=== PATIENT | male | born 1965 | race Caucasian/White ===

== ENCOUNTER 2016-11-05 08:01 | Inpatient (IN) | payer OTHER ==
--- NOTE | 2016-11-05 08:24 | ED Physician Documentation ---
PD HPI ABD PAIN - Stated complaint Stated Complaint: LOWER ABD PX - Chief complaint Chief Complaint: Abd Pain - History obtained from History obtained from: Patient - History of Present Illness Timing - onset: Enter time (1800), Last night Timing - duration: Hours Timing - details: Gradual onset, Still present Quality: Aching, Sharp, Pain Location: RLQ Radiation: Lower back Improved by: Laying still Worsened by: Moving, Breathing, Position, Palpation Associated symptoms: Nausea. No: Vomiting, Diarrhea, Chest pain, Testicular pain Similar symptoms before: Has not had sx before Recently seen: Not recently seen - Additional information Additional information: 51-year-old male developed pain in his lower abdomen around the umbilical area last night at about 6 PM. He was unable to sleep last night secondary to the discomfort he was able to eat an egg this morning and when he drove to the hospital here this morning he had pain while going over bumps. He found that laying in the position was more comfortable and standing or walking less comfortable. He has not had a fever he has had some nausea but no vomiting. Review of Systems Constitutional: denies: Fever Eyes: denies: Decreased vision Ears: denies: Ear pain Nose: denies: Congestion Throat: denies: Sore throat Cardiac: denies: Chest pain / pressure, Palpitations Respiratory: denies: Dyspnea, Cough GI: reports: Abdominal Pain, Nausea. denies: Vomiting, Diarrhea : denies: Dysuria, Frequency Skin: denies: Rash Musculoskeletal: reports: Back pain (For the past 3 days the patient has had pain in his back that seemed muscular.). denies: Neck pain PD PAST MEDICAL HISTORY - Past Medical History Cardiovascular: Hypertension, High cholesterol GI: GERD - Past Surgical History Past Surgical History: No Ortho: Shoulder arthroplasty - Present Medications Home Medications: Ambulatory Orders Medication Instructions Recorded Confirmed Losartan [Cozaar] 25 mg PO DAILY 01/03/15 01/03/15 Potassium Bicarbonate/Cit AC 50 meq PO DAILY 01/03/15 01/03/15 [Potassium 25 Meq Tablet Eff] Atenolol 25 mg PO DAILY 11/05/16 11/05/16 - Allergies Allergies/Adverse Reactions: Allergies Allergy/AdvReac Type Severity Reaction Status Date / Time benazepril HCl * Allergy Respiratory Verified 01/03/15 14:33 [From Lotensin] - Social History Does the pt smoke?: No Smoking Status: Never smoker Does the pt drink ETOH?: Yes Does the pt have substance abuse?: No - Immunizations Immunizations are current?: Yes - POLST Patient has POLST: No PD ED PE NORMAL - Vitals Vital signs reviewed: Yes (Hypertensive) - General General: Alert and oriented X 3, No acute distress, Well developed/nourished - HEENT HEENT: Atraumatic, PERRL - Neck Neck: Supple, no meningeal sign - Cardiac Cardiac: RRR, No murmur - Respiratory Respiratory: No respiratory distress, Clear bilaterally - Abdomen Abdomen: Soft, Other (There is specific right lower quadrant tenderness over McBurney's point and this is reproducible. He does not have any guarding or referred tenderness.) - Back Back: No CVA TTP, No spinal TTP - Derm Derm: Normal color, No rash - Extremities Extremities: No deformity, No edema - Neuro Neuro: Alert and oriented X 3, No motor deficit, No sensory deficit, Normal speech Results - Vitals Vitals: Vital Signs - 24 hr 11/05/16 11/05/16 11/05/16 08:03 10:55 12:36 Temperature 35.6 C L 37.1 C Heart Rate 92 72 74 Respiratory 16 18 18 Rate Blood Pressure 145/91 H 116/68 129/70 O2 Saturation 98 96 98 11/05/16 14:12 Temperature 37.1 C Heart Rate 79 Respiratory 18 Rate Blood Pressure 135/87 H O2 Saturation 96 Oxygen O2 Source Room air - Labs Labs: Laboratory Tests 11/05/16 11/05/16 11/05/16 08:20 08:20 08:50 WBC 15.4 H RBC 4.91 Hgb 15.3 Hct 44.0 MCV 89.7 MCH 31.2 H MCHC 34.8 RDW 12.8 Plt Count 168 MPV 8.3 Neut # 11.7 H Lymph # 2.2 [place] # 0.9 Eos # 0.4 Baso # 0.1 Absolute Nucleated RBC 0.00 Nucleated RBCs 0.0 PT INR APTT Sodium 134 L Potassium 3.7 Chloride 100 L Carbon Dioxide 26 Anion Gap 8.0 BUN 15 Creatinine 0.6 Estimated GFR (MDRD) 142 Glucose 125 H Calcium 9.0 Total Bilirubin 1.0 AST 22 ALT 30 Alkaline Phosphatase 58 Total Protein 7.7 Albumin 4.1 Globulin 3.6 Albumin/Globulin Ratio 1.1 Lipase 16 L Urine Color DARK YELLOW Urine Clarity CLEAR Urine pH 6.5 Ur Specific [place] 1.020 Urine Protein NEGATIVE Urine Glucose (UA) NEGATIVE Urine Ketones 15 H Urine Occult Blood NEGATIVE Urine Nitrite NEGATIVE Urine Bilirubin NEGATIVE Urine Urobilinogen 1 (NORMAL) Ur Leukocyte Esterase NEGATIVE Ur Microscopic Review NOT INDICATED Urine Culture Comments NOT INDICATED Blood Type Antibody Screen 11/05/16 11/05/16 13:40 13:40 WBC RBC Hgb Hct MCV MCH MCHC RDW Plt Count MPV Neut # Lymph # [place] # Eos # Baso # Absolute Nucleated RBC Nucleated RBCs PT 13.0 H INR 1.2 APTT 26.9 Sodium Potassium Chloride Carbon Dioxide Anion Gap BUN Creatinine Estimated GFR (MDRD) Glucose Calcium Total Bilirubin AST ALT Alkaline Phosphatase Total Protein Albumin Globulin Albumin/Globulin Ratio Lipase Urine Color Urine Clarity Urine pH Ur Specific [place] Urine Protein Urine Glucose (UA) Urine Ketones Urine Occult Blood Urine Nitrite Urine Bilirubin Urine Urobilinogen Ur Leukocyte Esterase Ur Microscopic Review Urine Culture Comments Blood Type O POSITIVE Antibody Screen NEGATIVE - Rads (name of study) CT abdomen and pelvis Radiology: Prelim report reviewed (Impression: 1. Patchy infiltrate seen in both lung bases, atelectasis versus early infiltrate.2. Acute appendicitis. No abscess or drainable fluid collections.), EMP read indepedently, See rad report 2 veiw chest Radiology: Prelim report reviewed (IMPRESSION: Possible lingular infiltrate or atelectasis. ), EMP read indepedently, See rad report PD MEDICAL DECISION MAKING - ED course Complexity details: reviewed old records, reviewed results, re-evaluated patient , considered differential, d/w patient ED course: 51-year-old male with 12 hours of abdominal pain has acute appendicitis. Dr. Calvert is consulted in the case and will take the patient to the OR. Departure - Departure Disposition: ED Transfer to [facility] Clinical Impression: Appendicitis Qualifiers: Appendicitis type: acute appendicitis Acute appendicitis type: with localized peritonitis Qualified Code(s): K35.3 - Acute appendicitis with localized peritonitis Discharge Date/Time: 11/05/16 14:47
[2016-11-05] MEDS ORDERED: SODIUM CHLORIDE 0.9% 1,000 ML IV ONE ×2 (08:26→08:31)
[2016-11-05] MEDS ORDERED: KETOROLAC 60 MG/2 ML VIAL IVP STA (08:26)
[2016-11-05] MEDS ORDERED: KETOROLAC 30 MG/ML VIAL ONE (08:31)
[2016-11-05 08:39] LABS: BASOPHILS # (AUTO) 0.1 10^3/uL (0.0-0.1); BASOPHILS % (AUTO) 0.7 %; EOSINOPHILS # (AUTO) 0.4 10^3/uL (0.0-0.7); EOSINOPHILS % (AUTO) 2.5 %; HGB - HEMOGLOBIN 15.3 g/dL (14.0-18.0); LYMPHOCYTES # (AUTO) 2.2 10^3/uL (1.5-3.5); LYMPHOCYTES % (AUTO) 14.2 %; MEAN CORPUSCULAR HEMOGLOBIN 31.2 pg (27.0-31.0); MEAN CORPUSCULAR HGB CONC 34.8 g/dL (32.0-36.0); MEAN CORPUSCULAR VOLUME 89.7 fL (80.0-94.0); MEAN PLATELET VOLUME 8.3 fL (7.4-11.4); MONOCYTES # (AUTO) 0.9 10^3/uL (0.0-1.0); MONOCYTES % (AUTO) 6.2 %; NEUTROPHILS # (AUTO) 11.7 10^3/uL (1.5-6.6); NEUTROPHILS % (AUTO) 76.4 %; RED BLOOD COUNT 4.91 10^6/uL (4.70-6.10); RED CELL DISTRIBUTION WIDTH 12.8 % (12.0-15.0); UNCORRECTED WHITE BLOOD COUNT 15.4 x10^3/uL; WHITE BLOOD COUNT 15.4 x10^3/uL (4.8-10.8)
[2016-11-05 08:54] LABS: ALBUMIN/GLOBULIN RATIO 1.1 (1.0-2.2); CREATININE 0.6 mg/dL (0.6-1.2); POTASSIUM 3.7 mmol/L (3.5-5.0); TOTAL PROTEIN 7.7 g/dL (6.7-8.2)
[2016-11-05 09:13] LABS: PH,URINE 6.5 PH (5.0-7.5)
[2016-11-05 09:23] LABS: BILIRUBIN,URINE NEGATIVE (NEGATIVE); UA CHARGE (STRIP ONLY) YES; UR CULTURE IF IND NOT INDICATED
--- NOTE | 2016-11-05 09:46 | CT Preliminary Report ---
Exam: CT Abdomen/Pelvis W/O IMPRESSION: 1. Patchy infiltrate seen in both lung bases, atelectasis versus early infiltrate. 2. Acute appendicitis. No abscessogram or fluid collections. [facility] SITE ID: [id number]
--- NOTE | 2016-11-05 09:52 | CT Report ---
EXAM: CT ABDOMEN AND PELVIS EXAM DATE: 11/05/2016 08:52 AM. CLINICAL HISTORY: Right lower quadrant pain. COMPARISONS: None. TECHNIQUE: Routine helical CT imaging was performed through the abdomen and pelvis. IV contrast: None . Enteric contrast: None. Reconstructions: Coronal and sagittal. In accordance with CT protocol optimization, one or more of the following dose reduction techniques w ere utilized for this exam: automated exposure control, adjustment of mA and/or KV based on patient s ize, or use of iterative reconstructive technique. FINDINGS: Lung Bases: Some minimal patchy airspace density is seen in the lung bases. Please see series 4 image 10. Liver: Normal. No masses. Gallbladder/Bile Ducts: Unremarkable. Spleen: Normal. Pancreas: Normal. Adrenal Glands: Normal. Kidneys: Normal. No masses or hydronephrosis. No stones. Peritoneal Cavity/Bowel: Normal. No free fluid, free air or adenopathy. No masses or acute inflammato ry process. Appendix is well-seen, diffusely abnormal, appendiceal diameter is 12 mm, and there is pe riappendiceal inflammation present. No drainable fluid collections. Please see series 4 image 72, series 6 image 38. Pelvic Organs: Normal. The bladder and visualized pelvic organs are within normal limits. Vasculature: Some vascular clips are seen in both common femoral regions. Bones: No significant abnormality. Other: None. IMPRESSION: 1. Patchy infiltrate seen in both lung bases, atelectasis versus early infiltrate. 2. Acute appendicitis. No abscess or drainable fluid collections. [facility] Referring Provider Line: [phone] SITE ID: [id number]
[2016-11-05] MEDS ORDERED: cefOXitin 1 GM in SODIUM CHLORIDE 0.9% MINIBAG 100 ML IV STA (10:35)
[2016-11-05 13:54] LABS: INR 1.2 (0.8-1.2)
--- NOTE | 2016-11-05 14:01 | HISTORY & PHYSICAL EXAMINATION ---
Chief Complaint - Chief Complaint Chief Complaint: Abdominal pain History of Present Illness - Admitted From Admitted From:: ED - History Obtained From Records Reviewed: yes History obtained from: patient & Spouse Exam Limitations: none - History of Present Illness HPI Comment/Other: 51 yo male c/o of 3 day history of intermittent 8/10 periumbilical pain that migrated to right lower quadrant earlier this am and pain became unbearable so he came to ED. Associated with Nausea. Denies F/C/NS, No vomiting or Diarrhea. First time episode. Review of Systems - Constitutional Constitutional: reports: Fatigue - Eyes Eyes: denies: Pain - Ears, Nose & Throat Ears, Nose & Throat: denies: Ear pain - Cardiovascular Cariovascular: denies: Palpitations, Chest pain, Syncope - Respiratory Respiratory: reports: Apnea (Sleep Apnea on CPAP). denies: Cough, Sputum production, Wheezing, SOB at rest, SOB with exertion - Gastrointestinal Gastrointestinal: reports: Abdominal pain. denies: Diarrhea - Genitourinary Genitourinary: denies: Dysuria - Musculoskeletal Musculoskeletal: denies: Muscle pain - Integumentary Integumentary: denies: Rash - Neurological Neurological: reports: General weakness - Psychiatric Psychiatric: denies: Depression, Anxiety, Suicidal - Hematologic/Lymphatic Hematologic/Lymphatic: denies: Anemia - All Other Systems All Other Systems: reports: Reviewed and negative History - Past Medical History Cardiovascular: reports: Hypertension, High cholesterol Respiratory: reports: Sleep apnea Neuro: reports: None Endocrine/Autoimmune: reports: None GI: reports: GERD : reports: None HEENT: reports: None Psych: reports: None Musculoskeletal: reports: None Derm: reports: None MRSA Hx?: No - Past Surgical History Ortho: reports: Shoulder arthroplasty Cardiovascular: reports: Vascular surgery (Varicose vein removal) HEENT: reports: Tonsil/Adenoidectomy - Family & Social History Family History: Father: Cancer (colon) - POLST Patient has POLST: No Meds/Allgy - Home Medications Home Medications: Ambulatory Orders Medication Instructions Recorded Confirmed Losartan [Cozaar] 25 mg PO DAILY 01/03/15 01/03/15 Potassium Bicarbonate/Cit AC 50 meq PO DAILY 01/03/15 01/03/15 [Potassium 25 Meq Tablet Eff] Atenolol 25 mg PO DAILY 11/05/16 11/05/16 - Allergies Allergies/Adverse Reactions: Allergies Allergy/AdvReac Type Severity Reaction Status Date / Time benazepril HCl * Allergy Respiratory Verified 01/03/15 14:33 [From Lotensin] Exam - Vital Signs Reviewed Vital Signs: Yes Vital Signs: Vital Signs x48h Temp Pulse Resp BP Pulse Ox 11/05/16 12:36 74 18 129/70 98 11/05/16 10:55 37.1 C 72 18 116/68 96 11/05/16 08:03 35.6 C L 92 16 145/91 H 98 - Physical Exam General Appearance: positive: No acute distress Eyes Bilateral: positive: Normal inspection ENT: positive: No signs of dehydration Neck: positive: No JVD Respiratory: positive: Breath sounds nml. negative: Wheezes, Rales, Rhonchi Cardiovascular: positive: Regular rate & rhythm Peripheral Pulses: positive: 2+ Abdomen: positive: Tenderness (+Bs, Soft, TTP RLQ, + rosving, +rebound, Negative obturator/Psoas sign) Back: negative: CVA tenderness (R), CVA tenderness (L) Skin: positive: Warm, Dry Extremities: positive: Pedal edema. negative: Ludwig's sign/cords Conclusion/Plan - Problem List (1) Appendicitis Conclusion/Plan: 51 yo male with acute abdomen found to have appendicitis Admit to surgery NPO, LR@ 150 OR today for laparoscopic appendectomy possible open IV zosyn Qualifiers: Appendicitis type: acute appendicitis Acute appendicitis type: with localized peritonitis Qualified Code(s): K35.3 - Acute appendicitis with localized peritonitis - Lab Results Lab results reviewed: Yes Fish Bones: 11/05/16 08:20 11/05/16 08:20 - Diagnostic Imaging Results Diagnostic Imaging Results: positive: Read contemporaneously (CT abd/p IMPRESSION: 1. Patchy infiltrate seen in both lung bases, atelectasis versus early infiltrate. 2. Acute appendicitis. No abscess or drainable fluid collections.) Issues/Core Measures - Anticipated LOS Anticipated Stay Length: Less than 2 midnights - DVT/VTE - Prophylaxis VTE/DVT Device ordered at admit?: Yes VTE/DVT Prophylaxis med ordered at admit?: Yes
[2016-11-05 14:02] LABS: PARTIAL THROMBOPLASTIN TIME 26.9 secs (24.9-33.3)
[2016-11-05] MEDS ORDERED: SODIUM CHLORIDE FLUSH 0.9% 10 ML SYRINGE IVP PRN (14:13)
[2016-11-05] MEDS ORDERED: PHENOL THROAT SPRAY 177 ML MM PRN (14:13)
[2016-11-05] MEDS ORDERED: ONDANSETRON 4 MG/2 ML VIAL IVP PRN (14:13)
--- NOTE | 2016-11-05 14:14 | XRAY Preliminary Report ---
Exam: XR Chest 2 View PA/LAT IMPRESSION: Possible lingular infiltrate or atelectasis. [facility] SITE ID: [id number]
--- NOTE | 2016-11-05 14:17 | XRAY Report ---
EXAM: CHEST RADIOGRAPHY EXAM DATE: 11/05/2016 02:01 PM. CLINICAL HISTORY: Cough. COMPARISON: None. TECHNIQUE: 2 views. FINDINGS: Lungs/Pleura: Mildly hyperexpanded. An intensely in the anterior chest on lateral view, difficult to localize in frontal projection, but probably in the lingula. Otherwise clear. No consolidation, effus ion, or pneumothorax. Mediastinum: Heart and mediastinal contours are unremarkable. Other: None. IMPRESSION: Possible lingular infiltrate or atelectasis. [facility] Referring Provider Line: [phone] SITE ID: [id number]
[2016-11-05] MEDS ORDERED: LACTATED RINGERS 1,000 ML IV ONE ×4 (14:53→17:55)
[2016-11-05] MEDS ORDERED: LIDOCAINE-MPF 2% 5 ML VIAL IM ONE (16:00)
[2016-11-05] MEDS ORDERED: ceFAZolin 1 GM VIAL IV ONE (16:00)
[2016-11-05] MEDS ORDERED: fentaNYL 100 MCG/2 ML VIAL IVP ONE (16:00)
[2016-11-05] MEDS ORDERED: MIDAZOLAM 2 MG/2 ML VIAL IVP ONE (16:00)
[2016-11-05] MEDS ORDERED: PIPERACILLIN/TAZOBACTAM 3.375 GM in SODIUM CHLORIDE 0.9% MINIBAG 100 ML IV ONE (16:00)
[2016-11-05] MEDS ORDERED: SUCCINYLCHOLINE 200 MG/10 ML VIAL IVP ONE (16:00)
[2016-11-05] MEDS ORDERED: PROPOFOL 200 MG/20 ML VIAL IVP ONE (16:00)
[2016-11-05] MEDS ORDERED: GLYCOPYRROLATE 1 MG/5 ML VIAL IVP ONE (16:00)
[2016-11-05] MEDS ORDERED: ROCURONIUM 50 MG/5 ML VIAL IVP ONE (16:00)
[2016-11-05] MEDS ORDERED: ACETAMINOPHEN 1,000 MG/100 ML VIAL IV ONE (16:00)
[2016-11-05] MEDS ORDERED: ONDANSETRON 4 MG/2 ML VIAL IVP ONE (16:00)
[2016-11-05] MEDS ORDERED: ePHEDrine 50 MG/ML AMP IVP ONE (16:00)
[2016-11-05] MEDS ORDERED: DEXAMETHASONE 4 MG/ML VIAL IVP ONE (16:00)
[2016-11-05] MEDS ORDERED: PHENYLEPHRINE 50 MG/5 ML VIAL IV ONE (16:00)
[2016-11-05] MEDS ORDERED: LIDOCAINE 1%-EPI 1:100000 20 ML MDV SUBQ ONE ×2 (17:31→18:04)
--- NOTE | 2016-11-05 18:32 | OPERATIVE REPORT ---
Operative Report - General Admit Date: 11/05/16 Planned Procedure: Laparoscopic appendectomy possible open Pre-Op Diagnosis: Acute appendicitis Post Op Diagnosis: Acute perforated appendicitis with peritonitis - Procedure Note Primary Surgeon: Dr. Calvert Secondary Surgeon: Dr. Carranza Anesthesia Provider: Truman Rao CRNA Pathology: Appendix Estimated Blood Loss (in cc): 30 Drain/Tube Type: positive: Pako Lin round drain (#15) Complications: None - Other Other Information/Narrative: See anesthesia record
[2016-11-05] MEDS: ACETAMINOPHEN 1,000 MG/100 ML 100 ML IV SCH (19:50)
[2016-11-05] MEDS: LACTATED RINGERS 1,000 ML IV SCH ×2 (19:54→22:56)
[2016-11-05] MEDS: MORPHINE PCA 50 MG IV PRN (20:05)
[2016-11-05] MEDS: FAMOTIDINE 20 MG TABLET PO SCH (21:14)
[2016-11-05] MEDS ORDERED: PIPERACILLIN/TAZOBACTAM 3.375 GM in SODIUM CHLORIDE 0.9% MINIBAG 100 ML IV SCH (22:00)
[2016-11-05] MEDS ORDERED: LACTATED RINGERS 500 ML IV SCH (22:05)
[2016-11-05] MEDS: HEPARIN 5,000 UNIT/ML VIAL SUBQ SCH (22:56)
[2016-11-05] MEDS: SODIUM CHLORIDE FLUSH 0.9% 10 ML SYRINGE IVP SCH (23:01)
[2016-11-06] MEDS: PIPERACILLIN/TAZOBACTAM 3.375 GM in SODIUM CHLORIDE 0.9% MINIBAG 100 ML IV SCH ×5 (00:02→23:55)
[2016-11-06] MEDS: ACETAMINOPHEN 1,000 MG/100 ML 100 ML IV SCH ×4 (00:50→19:27)
[2016-11-06] MEDS: LACTATED RINGERS 1,000 ML IV SCH ×3 (03:56→20:42)
[2016-11-06] MEDS: SODIUM CHLORIDE FLUSH 0.9% 10 ML SYRINGE IVP SCH ×3 (05:18→19:34)
[2016-11-06 05:50] LABS: ALBUMIN/GLOBULIN RATIO 1.1 (1.0-2.2); BILIRUBIN,TOTAL 0.9 mg/dL (0.2-1.0); CALCIUM 8.4 mg/dL (8.5-10.3); CREATININE 0.7 mg/dL (0.6-1.2); POTASSIUM 3.9 mmol/L (3.5-5.0); TOTAL PROTEIN 6.5 g/dL (6.7-8.2)
[2016-11-06 05:53] LABS: BASOPHILS % (AUTO) 0.2 %; HGB - HEMOGLOBIN 13.6 g/dL (14.0-18.0); LYMPHOCYTES # (AUTO) 1.5 10^3/uL (1.5-3.5); LYMPHOCYTES % (AUTO) 11.3 %; MEAN CORPUSCULAR HEMOGLOBIN 31.3 pg (27.0-31.0); MEAN CORPUSCULAR VOLUME 92.2 fL (80.0-94.0); MEAN PLATELET VOLUME 8.6 fL (7.4-11.4); MONOCYTES # (AUTO) 0.9 10^3/uL (0.0-1.0); MONOCYTES % (AUTO) 7.1 %; NEUTROPHILS # (AUTO) 10.8 10^3/uL (1.5-6.6); NEUTROPHILS % (AUTO) 81.4 %; RED BLOOD COUNT 4.34 10^6/uL (4.70-6.10); UNCORRECTED WHITE BLOOD COUNT 13.2 x10^3/uL; WHITE BLOOD COUNT 13.2 x10^3/uL (4.8-10.8)
[2016-11-06] MEDS: FAMOTIDINE 20 MG TABLET PO SCH ×2 (08:36→20:42)
[2016-11-06] MEDS: HEPARIN 5,000 UNIT/ML VIAL SUBQ SCH ×3 (08:36→22:30)
--- NOTE | 2016-11-06 10:54 | OPERATIVE REPORT ---
DATE OF SURGERY: 11/05/2016 00:00:00 PREOPERATIVE DIAGNOSIS: Acute appendicitis. POSTOPERATIVE DIAGNOSIS: Acute perforated appendicitis with peritonitis. PROCEDURE: Laparoscopic appendectomy converted to open appendectomy. SURGEON: Kelton Calvert DO SENIOR PRODUCT ANALYST: Trinh Carranza MD ANESTHESIA: General by Joseph Rao CRNA FINDINGS: Acute appendicitis with perforation. SPECIMENS: Appendix, culture swabs. COMPLICATIONS: None. ESTIMATED BLOOD LOSS: 30 mL. URINE OUTPUT: 380 mL. INTRAVENOUS FLUIDS: 3000 mL. INDICATIONS: This 51-year-old male with hypertension, sleep apnea, class III morbid obesity, presented with right lower quadrant pain for 3 days' duration associated with nausea, with a leukocytosis of 15.[address] scan was consistent with acute appendicitis. Surgical and nonsurgical options were discussed with the patient, including, but not limited to laparoscopic procedure and possible open procedures. The risks and benefits including, but not limited to infection, bleeding, possible need for transfusion and the related risks, risk of abscess, risk of fistula, risk of future hernias, anesthesia risks, scar formation, skin irregularities, risk of were discussed with the patient in layman's terms. The patient agreed to the procedure and signed consent. All questions were answered. PROCEDURE IN DETAIL: The patient was taken to the operating room and placed in a supine position. General anesthesia was induced after SCDs were placed. A Navas catheter was placed. Arms were tucked. The patient had been given IV Mefoxin in the ED and Ancef perioperatively. The patient was prepped and draped in the usual sterile fashion. A timeout was completed, verifying the correct patient, procedure site, position prior to start of procedure. Lidocaine 1% with epinephrine was used supraumbilically for Estephanie and other trocar sites. A #15 blade puncture was created through the skin. Using Estephanie technique, a 12 mm Estephanie trocar was placed supraumbically under direct vision, a 5 mm trocar was placed at the left lower quadrant, a 5 mm trocar was placed in the upper right and lower right quadrants, all under direct vision. The abdomen and pelvis were scanned with no sign of injury from trocar entry. There was no gross pelvic disease noted. Patient was then placed in the Trendelenburg with left side down. The appendix base was clearly visualized and was inflamed at the body and tip with adhesion to the right lateral parietal peritoneum and a small amount of purulence. The base of the appendix was grasped with a Mathew , and careful, painstaking lateral dissection between the peritoneal wall and the appendix was performed using blunt dissection as well as with LigaSure. The mesoappendix was dissected and then ligated with the LigaSure. The appendix and surrounding tissue was found to be very friable, and given the patient's morbid obesity and appendiceal friability, the procedure was converted to open. A right transverse incision was made in the right lower quadrant directly over where the cecum was determined to be, approximately 9 cm in length. Cautery was used to the subcutaneous tissue. A Maria retractor was placed, and the anterior fascia was incised. The abdominal muscles were then split bluntly in the direction of the fibers. Peritoneum was incised, bowel was protected, and entry was obtained. The cecum was exteriorized, and a single blue load was fired across the base of the appendix with complete transection. The appendiceal stump was then oversewn with 2-0 Vicryl. The abdomen was irrigated with saline and suctioned. Hemostasis was maintained. The staple line was inspected and intact with no signs of leakage or bleeding. The 12 mm port was closed with 0 Vicryl suture under direct vision. A 15- [place] round BETSY was placed along the right pericolic gutter and pelvis and sutured to the skin. The transverse incision was closed in layers with 0 Vicryl interrupted sutures. The skin was then washed copiously and dried, and sterilely widely spaced demetra with iodoform packing were placed, followed by Aquacel dressing. The appendix and cultures were sent to Pathology. The patient tolerated the procedure well, was extubated, and taken to PACU for recovery. COUNTS: All counts were correct. JOB #: [id number] EXT JOB #:[id number] URI
[2016-11-06] MEDS ORDERED: LACTATED RINGERS 500 ML IV ONE (12:16)
--- NOTE | 2016-11-06 12:26 | PROVIDER PROGRESS NOTE ---
Subjective - General Admit Date: 11/05/16 Procedure Date: 11/05/16 Post Op Days: 1 Procedure Performed: Open appendectomy - Review of Systems Wound/Incisions: positive: Healing well, Dressing dry and intact, No drainage Drain Type: round BETSY Drain Output Description: serosanguenous Approximate mls Output: 70 General: positive: No symptoms HEENT: positive: No symptoms Pulmonary: positive: No symptoms Cardiovascular: positive: No symptoms Gastrointestinal: positive: Abdominal pain (Post operative appropriate) Genitourinary: positive: No symptoms Musculoskeletal: positive: No symptoms Skin: positive: No symptoms Psychiatric: positive: No symptoms All Other Systems: positive: Reviewed and negative - Other Other Information/Narrative: Patient seen at bedside. States has been ambulating which causes pain, using IS. Denies flatus. No issues reported. Objective - Patient Data Reviewed Vital Signs: Yes Vital Signs: Vital Signs x48h Temp Pulse Resp BP Pulse Ox 11/06/16 11:50 36.9 C 82 18 110/74 97 11/06/16 09:00 20 11/06/16 08:55 36.9 C 86 18 102/61 97 11/06/16 07:00 16 11/06/16 05:22 36.8 C 89 18 108/68 93 11/06/16 05:00 16 Intake & Output: Intake and Output Totals x24h 11/04/16 11/05/16 11/06/16 23:59 23:59 23:59 Intake Total 330 2491 Output Total 440 1395 Balance -110 1096 - Lab Results Lab Results: 11/06/16 05:08 11/06/16 05:08 Other Lab Results: Lab Results x24hrs 11/06/16 11/06/16 Range/Units 05:08 05:08 WBC 13.2 H (4.8-10.8) x10^3/uL RBC 4.34 L (4.70-6.10) 10^6/uL Hgb 13.6 L (14.0-18.0) g/dL Hct 40.0 L (42.0-52.0) % MCV 92.2 (80.0-94.0) fL MCH 31.3 H (27.0-31.0) pg MCHC 34.0 (32.0-36.0) g/dL RDW 13.0 (12.0-15.0) % Plt Count 158 (130-450) 10^3/uL MPV 8.6 (7.4-11.4) fL Neut # 10.8 H (1.5-6.6) 10^3/uL Lymph # 1.5 (1.5-3.5) 10^3/uL [place] # 0.9 (0.0-1.0) 10^3/uL Eos # 0.0 (0.0-0.7) 10^3/uL Baso # 0.0 (0.0-0.1) 10^3/uL Absolute Nucleated RBC 0.00 x10^3/uL Nucleated RBCs 0.0 /100WBC Sodium 138 (135-145) mmol/L Potassium 3.9 (3.5-5.0) mmol/L Chloride 103 (101-111) mmol/L Carbon Dioxide 28 (21-32) mmol/L Anion Gap 7.0 (6-13) BUN 10 (6-20) mg/dL Creatinine 0.7 (0.6-1.2) mg/dL Estimated GFR (MDRD) 119 (>89) Glucose 130 H (70-100) mg/dL Calcium 8.4 L (8.5-10.3) mg/dL Total Bilirubin 0.9 (0.2-1.0) mg/dL AST 19 (10-42) IU/L ALT 23 (10-60) IU/L Alkaline Phosphatase 45 (42-121) IU/L Total Protein 6.5 L (6.7-8.2) g/dL Albumin 3.4 (3.2-5.5) g/dL Globulin 3.1 (2.1-4.2) g/dL Albumin/Globulin Ratio 1.1 (1.0-2.2) - Current Medications Current Medications: Current Medications Generic Name Dose Route Start Last Admin Trade Name Freq PRN Reason Stop Dose Admin Famotidine 20 mg 11/05/16 21:00 11/06/16 08:36 Pepcid PO 20 mg BID IVELISSE Administration Heparin Sodium (Porcine) 5,000 unit 11/05/16 23:00 11/06/16 08:36 SUBQ 5,000 unit BID IVELISSE Administration Lactated Ringer's 1,000 mls @ 150 mls/hr 11/05/16 15:00 11/06/16 10:47 Lr IV 150 mls/hr .Q6H40M IVELISSE Administration Acetaminophen 100 mls @ 400 mls/hr 11/05/16 19:00 11/06/16 06:38 Ofirmev IV 400 mls/hr Q6H IVELISSE Administration Piperacillin Sod/Tazobactam 100 mls @ 200 mls/hr 11/06/16 00:30 11/06/16 06:02 Sod 3.375 gm/ Sodium Chloride IV 200 mls/hr Q6H IVELISSE Administration Morphine Sulfate/Sodium Chloride 50 mg 11/05/16 18:27 11/05/16 20:05 Morphine Pole Shaver Helper (Use Pole Shaver Helper Order Set) IV 50 mg APPLICATIONS DEVELOPER PRN Administration PAIN Protocol Sodium Chloride 10 ml 11/05/16 22:00 11/06/16 05:18 Normal Saline Flush 0.9% IVP Not Given Q8HR IVELISSE - Physical Exam Wound/Incisions: positive: Dressing dry and intact General Appearance: positive: Mild distress Eyes Bilateral: positive: EOMI ENT: positive: Pharynx nml, No signs of dehydration (urine output adequate, however slightly dark dayanara) Neck: positive: No JVD Respiratory: positive: Breath sounds nml Cardiovascular: positive: Regular rate & rhythm Abdomen: positive: Tenderness (+BS, soft, TTP at surgical sites appropriate, No rebound or guarding) Back: positive: Nml inspection Skin: positive: Warm, Dry Extremities: negative: Calf tenderness, Ludwig's sign/cords Neurologic/Psychiatric: positive: Oriented x3, CN's nml (2-12) Impression/Plan - Problem List Problem List: 51 yo male with perforated appendicitis with peritonitis POD#1 Continue ABX today Continue smith for hemodynamic monitoring for today Echo for EF Will start clears Awaiting cultures and pathology Will hold B-blockers until SBP normalizes
[2016-11-06] MEDS: MORPHINE PCA 50 MG IV PRN (14:08)
[2016-11-06] MEDS ORDERED: LACTATED RINGERS 500 ML IV SCH (14:30)
[2016-11-06] MEDS ORDERED: MORPHINE 2 MG/ML SYRINGE IVP PRN (20:56)
[2016-11-06] MEDS ORDERED: KETOROLAC 15 MG/ML VIAL IVP PRN (20:58)
[2016-11-06] MEDS: IBUPROFEN 400 MG TABLET PO SCH ×2 (21:11→23:56)
[2016-11-06] MEDS: HYDROcod/ACETAM 5/325 MG TABLET PO PRN (22:31)
[2016-11-07] MEDS ORDERED: LACTATED RINGERS 1,000 ML IV SCH (00:35)
[2016-11-07] MEDS: IBUPROFEN 400 MG TABLET PO SCH (05:48)
[2016-11-07] MEDS: HEPARIN 5,000 UNIT/ML VIAL SUBQ SCH ×2 (05:49→13:25)
[2016-11-07] MEDS: HYDROcod/ACETAM 5/325 MG TABLET PO PRN ×3 (05:51→18:19)
[2016-11-07 05:53] LABS: BASOPHILS # (AUTO) 0.1 10^3/uL (0.0-0.1); BASOPHILS % (AUTO) 0.9 %; EOSINOPHILS # (AUTO) 0.4 10^3/uL (0.0-0.7); EOSINOPHILS % (AUTO) 3.7 %; HCT - HEMATOCRIT 38.3 % (42.0-52.0); HGB - HEMOGLOBIN 13.4 g/dL (14.0-18.0); LYMPHOCYTES # (AUTO) 2.2 10^3/uL (1.5-3.5); LYMPHOCYTES % (AUTO) 21.1 %; MEAN CORPUSCULAR HEMOGLOBIN 31.9 pg (27.0-31.0); MEAN CORPUSCULAR HGB CONC 34.8 g/dL (32.0-36.0); MEAN CORPUSCULAR VOLUME 91.7 fL (80.0-94.0); MEAN PLATELET VOLUME 8.4 fL (7.4-11.4); MONOCYTES % (AUTO) 9.5 %; NEUTROPHILS # (AUTO) 6.8 10^3/uL (1.5-6.6); NEUTROPHILS % (AUTO) 64.8 %; NUCLEATED RED BLOOD CELLS AUTO 0.1 /100WBC; RED BLOOD COUNT 4.18 10^6/uL (4.70-6.10); RED CELL DISTRIBUTION WIDTH 12.9 % (12.0-15.0); UNCORRECTED WHITE BLOOD COUNT 10.5 x10^3/uL; WHITE BLOOD COUNT 10.5 x10^3/uL (4.8-10.8)
[2016-11-07 06:00] LABS: CALCIUM 8.6 mg/dL (8.5-10.3); CREATININE 0.6 mg/dL (0.6-1.2); POTASSIUM 3.6 mmol/L (3.5-5.0)
[2016-11-07] MEDS: SODIUM CHLORIDE FLUSH 0.9% 10 ML SYRINGE IVP SCH ×2 (06:54→13:32)
[2016-11-07] MEDS: PIPERACILLIN/TAZOBACTAM 3.375 GM in SODIUM CHLORIDE 0.9% MINIBAG 100 ML IV SCH ×2 (06:56→11:35)
[2016-11-07] MEDS: FAMOTIDINE 20 MG TABLET PO SCH (08:21)
[2016-11-07] MEDS ORDERED: POLYETHYLENE GLYCOL 3350 17 GM PACKET PO SCH (10:00)
--- NOTE | 2016-11-07 11:25 | PROVIDER PROGRESS NOTE ---
Subjective - General Admit Date: 11/05/16 Procedure Date: 11/05/16 Post Op Days: 2 Procedure Performed: Open appendectomy - Review of Systems Wound/Incisions: positive: Dressing dry and intact, No drainage Drain Type: round BETSY Drain Output Description: serosanguenous Approximate mls Output: 130 General: positive: No symptoms HEENT: positive: No symptoms Pulmonary: positive: No symptoms Cardiovascular: positive: No symptoms Gastrointestinal: positive: Abdominal pain (Post operative appropriate) Genitourinary: positive: No symptoms Musculoskeletal: positive: No symptoms Skin: positive: No symptoms Psychiatric: positive: No symptoms All Other Systems: positive: Reviewed and negative - Other Other Information/Narrative: Patient seen at bedside, Ambulating well. Using IS. Tolerating diet and passing flatus. BETSY drain with 130 mL output serosanguenous. Urinating well. Pain moderately controlled. No issues reported Objective - Patient Data Reviewed Vital Signs: Yes Vital Signs: Vital Signs x48h Temp Pulse Resp BP Pulse Ox 11/07/16 08:26 37.1 C 87 18 126/76 96 11/07/16 05:00 36.9 C 81 18 140/89 H 93 Intake & Output: Intake and Output Totals x24h 11/05/16 11/06/16 11/07/16 23:59 23:59 23:59 Intake Total 330 5639 1936 Output Total 440 2130 905 Balance -110 3509 1031 - Lab Results Lab Results: 11/07/16 05:23 11/07/16 05:23 Other Lab Results: Lab Results x24hrs 11/07/16 11/07/16 Range/Units 05:23 05:23 WBC 10.5 (4.8-10.8) x10^3/uL RBC 4.18 L (4.70-6.10) 10^6/uL Hgb 13.4 L (14.0-18.0) g/dL Hct 38.3 L (42.0-52.0) % MCV 91.7 (80.0-94.0) fL MCH 31.9 H (27.0-31.0) pg MCHC 34.8 (32.0-36.0) g/dL RDW 12.9 (12.0-15.0) % Plt Count 137 (130-450) 10^3/uL MPV 8.4 (7.4-11.4) fL Neut # 6.8 H (1.5-6.6) 10^3/uL Lymph # 2.2 (1.5-3.5) 10^3/uL [place] # 1.0 (0.0-1.0) 10^3/uL Eos # 0.4 (0.0-0.7) 10^3/uL Baso # 0.1 (0.0-0.1) 10^3/uL Absolute Nucleated RBC 0.01 x10^3/uL Nucleated RBCs 0.1 /100WBC Sodium 138 (135-145) mmol/L Potassium 3.6 (3.5-5.0) mmol/L Chloride 102 (101-111) mmol/L Carbon Dioxide 28 (21-32) mmol/L Anion Gap 8.0 (6-13) BUN 9 (6-20) mg/dL Creatinine 0.6 (0.6-1.2) mg/dL Estimated GFR (MDRD) 142 (>89) Glucose 103 H (70-100) mg/dL Calcium 8.6 (8.5-10.3) mg/dL - Current Medications Current Medications: Current Medications Generic Name Dose Route Start Last Admin Trade Name Freq PRN Reason Stop Dose Admin Acetaminophen/Hydrocodone Bitart 2 tab 11/06/16 20:56 11/07/16 05:51 [place] 5/325 PO 2 tab Q4HR PRN Administration Pain 5 to 7 Famotidine 20 mg 11/05/16 21:00 11/07/16 08:21 Pepcid PO 20 mg BID IVELISSE Administration Heparin Sodium (Porcine) 5,000 unit 11/06/16 17:00 11/07/16 05:49 SUBQ 5,000 unit TID IVELISSE Administration Piperacillin Sod/Tazobactam 100 mls @ 200 mls/hr 11/06/16 00:30 11/07/16 06:56 Sod 3.375 gm/ Sodium Chloride IV 200 mls/hr Q6H IVELISSE Administration Lactated Ringer's 1,000 mls @ 30 mls/hr 11/07/16 00:35 11/07/16 01:17 Lr IV Not Given .[id number] IVELISSE TKO Ketorolac Tromethamine 15 mg 11/06/16 20:58 11/07/16 08:22 Toradol Inj IVP 11/11/16 20:57 15 mg Q6HR PRN Administration PAIN Sodium Chloride 10 ml 11/05/16 22:00 11/07/16 06:54 Normal Saline Flush 0.9% IVP Not Given Q8HR IVEILSSE - Physical Exam Wound/Incisions: positive: Healing well, Dressing dry and intact, No drainage General Appearance: positive: No acute distress Eyes Bilateral: positive: EOMI ENT: positive: No signs of dehydration Neck: positive: No JVD Respiratory: positive: Breath sounds nml Cardiovascular: positive: Regular rate & rhythm Abdomen: positive: Tenderness (+BS, hypoactiven, Appropriate post op TTP, no rebound or guarding. BETSY drain in place.) Impression/Plan - Problem List Problem List: 51 yo Male s/ Open appendectomy for acute perforated appendicitis with peritonitis POD#2 Continue IV abx Continue BETSY Ambulate/ IS use Begin D/c planning
[2016-11-07] MEDS ORDERED: MULTIVITAMIN TABLET PO SCH (12:00)
[2016-11-07] MEDS ORDERED: MAGNESIUM OXIDE 400 MG TABLET PO SCH (12:00)
[2016-11-07] MEDS: POTASSIUM CHLORIDE 20 MEQ TABLET PO SCH ×2 (12:01→15:18)
[2016-11-07] MEDS ORDERED: POTASSIUM CHLORIDE 20 MEQ TABLET PO SCH (15:00)
[2016-11-07] MEDS ORDERED: metroNIDAZOLE 500 MG/100 ML 100 ML IV SCH (18:00)
[2016-11-07] MEDS ORDERED: CIPROFLOXACIN 400 MG/200 ML 200 ML IV SCH (18:00)
--- NOTE | 2016-11-07 18:21 | Discharge Plan ---
Discharge Plan Disposition: Home, Self Care Condition: Stable Prescriptions: Metronidazole [Flagyl] 500 mg PO Q8HR #15 tablet Ciprofloxacin HCl [Cipro] 500 mg PO BID #20 tablet Docusate Sodium 250Mg Capsule [Colace 250Mg Capsule] 250 mg PO DAILY PRN #30 capsule PRN Reason: Constipation oxyCODONE/ACET 5/325 [Percocet 5 mg/325 mg] 1 each PO Q4-6H PRN #20 tablet PRN Reason: Pain Metoclopramide [Reglan] 10 mg PO Q6H PRN #12 tablet PRN Reason: Nausea / Vomiting Diet: Low Sodium Activity Restrictions: Activity as Tolerated (No exercising which engage core muscles.) Shower Restrictions: Yes (Keep abdomen drym for 48 hours) Driving Restrictions: Yes (No driving while on narcotics) Additional Instructions or Follow Up instructions: Keep hydrated. Record drain output every 12 hours. Change drain dressing daily and as needed. Surgical dressings can come off in 48 hours. No heavy lifting more than 20 lbs for 2 weeks. No swimming unless cleared by surgical team. Use incentive spirometer. No driving, signing contracts or operating heavy machinery while on narcotics. If constipation greater than 48 hours call our office for further instructions. If pain returns or fevers develop return to call surgical number for further instructions. If pain worsens or fever greater than 101 then call 911 and return to hospital. Any questions 02/12 call our office . Call surgical clinic for appointment next week on Friday or Friday at the latest. Office Number: [phone] No Smoking: If you smoke, Please STOP! Call for help. Follow-up with: Mary Dave MD [Primary Care Provider] - 1 Week XIN CLAIRE MD [Provider Admit Priv/Credential] - 10/13/17 (Friday or Friday)
[2016-11-07] MEDS ORDERED: CIPROFLOXACIN 250 MG TABLET PO ONE (19:00)
[2016-11-07 19:28] VITALS: BP 140/88
[2016-11-07] MEDS ORDERED: ATENOLOL 25 MG TABLET PO SCH (21:00)
--- NOTE | 2016-11-08 06:30 | DISCHARGE SUMMARY ---
DATE OF ADMISSION: 11/05/2016 DATE OF DISCHARGE: 11/07/2016 FINAL DIAGNOSIS: Acute perforated appendicitis with peritonitis. PROCEDURE: Laparoscopic converted to open appendectomy. HISTORY OF PRESENT ILLNESS: This pleasant 51-year-old male with past medical history of hypertension, class 3 morbid obesity presented with approximately 3 days duration of sharp, rating it an 8/10 periumbilical pain that migrated to the right lower quadrant associated with nausea, which became unbearable so he came to the emergency department. ALLERGIES: BENAZEPRIL. LABORATORY DATA: His WBC on admission was 15.4K, sodium was 134, glucose was 125 , and urine ketones were 15. A CT scan of the abdomen and pelvis was positive for acute appendicitis, patchy infiltrate in bilateral lung bases were noted which possibly indicate atelectasis versus early pneumonia. HOSPITAL COURSE: The patient was started on lactated ringers and Zosyn was begun. The operative team was notified and the patient was taken to surgery for laparoscopic converted to open appendectomy. See OR dictation. The patient was recovered by the PACU team. Was continued on Zosyn postoperatively kept on IV acetaminophen, morphine PHARMACY BENEFIT MANAGER and Toradol as needed. Cultures came back growing E- coli sensitive to Cipro and antibiotics were switched to Cipro. He was ambulating well, pain was well-controlled, urinating well, using incentive spirometer and tolerating meals. The BETSY drain was putting out around 150 mL of serosanguineous fluid immediately postoperatively and subsequently decreased throughout postop day 2 and was removed. DISCHARGE MEDICATIONS: 1. Flagyl 500 mg p.o. q. 8, #15. 2. Cipro 500 mg p.o. b.i.d. #20. 3. Colace 250 mg p.o. q. daily p.r.n. constipation. 4. Percocet 5/325 mg 1 tab p.o. q. 4 to 6 hours p.r.n. pain. 5. Reglan 10 mg p.o. q. 6 hours p.r.n. nausea, #12. He was instructed to resume his home medications of: 1. Atenolol. 2. Losartan/HCTZ. 3. Potassium chloride pill as previously prescribed by his PCP. DISCHARGE INSTRUCTIONS: Instructions given to the patient before and after surgery. The patient was instructed no heavy lifting for the next few weeks, no more than 20 pounds, to ambulate 30 minutes 3 times daily starting 11/07/2016, to continue his diet as tolerated and use his incentive spirometer. The patient was also instructed that he may need Colace if constipated and if the constipation lasts longer than 48 hours he should call me for further instructions. He was instructed to continue using his CPAP machine as previously prescribed by his PCP. The patient was instructed not to drive, sign documents, or use heavy equipment while on narcotics. He may switch to Motrin 400 mg every 6 hours instead of Percocet. He was instructed not to swim until cleared by our surgical team. He was instructed to leave the dressing on for 48 hours and may remove the outer dressing and may shower with the dressings on and once off to pat the area, not to rub the surgical sites. He was instructed to take antibiotics as directed. He was instructed that if minor pain or fever developed to call the surgical number for further instructions and if the pain worsens or if he develops a fever of 101 degrees Fahrenheit or greater to call 911 and return to the Emergency Department. He was instructed to call me 02/12 with any questions or concerns. The clinic number was provided. He was again instructed of the possible postoperative complications such as abscess of both skin and intraabdominal, as well as hernia. Followup appointments: The patient was instructed to call the clinic on 2016 for an appointment with Dr. Carranza the following week. He is also instructed to follow up with his primary care physician within the next 2 weeks. CODE STATUS: FULL CODE. JOB #: [id number] EXT JOB #:[id number] MTDD
== END 2016-11-07 19:00 | disposition home or self-care (01) | DRG 339 ==
LOC: ED 08:01 → SDS 13:46 → OBSVTOIN 14:13 → MS 14:13
PROVIDERS: ADMIT Surgery; ATTEND Surgery
PROC: 0DTJ0ZZ Resection of Appendix, Open Approach (ICD-10-PCS; principal; 2016-11-05 15:45)
PROC: 0DJD4ZZ Inspection of Lower Intestinal Tract, Percutaneous Endoscopic Approach (ICD-10-PCS; 2016-11-05 15:45)
DX: K35.2 Acute appendicitis with generalized peritonitis (principal); Z68.41 Body mass index [BMI] 40.0-44.9, adult; I10 Essential (primary) hypertension; E66.01 Morbid (severe) obesity due to excess calories; G47.30 Sleep apnea, unspecified; Z53.31 Laparoscopic surgical procedure converted to open procedure; Z80.0 Family history of malignant neoplasm of digestive organs
CPT/HCPCS: 36415; 71020; 74176; 80048; 80053; 81001; 81003; 83690; 85025; 85610; 85730; 86850; 86900; 86901; 87070; 87075; 87076; 87077; 87086; 87205; 88304; 93005; 93306; 96365; 96375; 99284; 99285

== ENCOUNTER 2016-11-15 08:32 | Emergency (ER) | payer OTHER ==
[2016-11-15 08:41] VITALS: BP 155/101
--- NOTE | 2016-11-15 10:54 | ED Physician Documentation ---
History of Present Illness - Stated complaint Stated Complaint: R LEG SWELLING - Chief complaint Chief Complaint: Ext Problem - History obtained from History obtained from: Patient - Additonal information Additional information: This patient is a 51-year-old male with a history of superficial Phlebitis in the past as well as varicosities. Previously he has had vein stripping. He noticed an area that was swollen on the right anterior lateral leg that was concerning to him. At this point area is slightly tender to touch, raised, and warm. He denies any generalized leg swelling of the affected right side. He was concerned because he had abdominal surgery 10 days ago. He had an open elsa appendectomy at this time. He denies any pulmonary complaints such as chest pain or shortness of breath he has never had a deep venous thrombosis before and has had an ultrasound of his legs bilaterally about a year ago. Review of systems: For pertinent positives and negatives history of present illness otherwise all other systems have been reviewed and are normal PD PAST MEDICAL HISTORY - Past Medical History Cardiovascular: Hypertension, High cholesterol Respiratory: Sleep apnea Neuro: None Endocrine/Autoimmune: None GI: GERD : None HEENT: None Psych: None Musculoskeletal: None Derm: None - Past Surgical History Past Surgical History: Yes General: Appendectomy Ortho: Shoulder arthroplasty Cardiovascular: Vascular surgery HEENT: Tonsil/Adenoidectomy - Present Medications Home Medications: Ambulatory Orders Medication Instructions Recorded Confirmed Atenolol 25 mg PO DAILY 11/05/16 11/15/16 Losartan/Hydrochlorothiazide 1 tab PO DAILY 11/06/16 11/15/16 [Losartan-Hctz 100-25 mg Tab] Potassium Chloride 20 meq PO DAILY 11/06/16 11/15/16 Ciprofloxacin HCl [Cipro] 500 mg PO BID #20 tablet 11/07/16 11/15/16 Docusate Sodium 250Mg Capsule 250 mg PO DAILY PRN #30 capsule 11/07/16 11/15/16 [Colace 250Mg Capsule] oxyCODONE/ACET 5/325 [Percocet 5 1 each PO Q4-6H PRN #20 tablet 11/07/16 mg/325 mg] HYDROcod/ACETAM 5/325 [[place] 5/325] 1 - 2 ea PO Q6H PRN #15 tablet 11/15/16 - Allergies Allergies/Adverse Reactions: Allergies Allergy/AdvReac Type Severity Reaction Status Date / Time benazepril HCl * Allergy Respiratory Verified 11/15/16 08:41 [From Lotensin] - Social History Does the pt smoke?: No Smoking Status: Never smoker Does the pt drink ETOH?: Yes Does the pt have substance abuse?: No - Immunizations Immunizations are current?: Yes - POLST Patient has POLST: No PD ED PE NORMAL - Vitals Vital signs reviewed: Yes - General General: Alert and oriented X 3, No acute distress - HEENT HEENT: PERRL - Neck Neck: Supple, no meningeal sign - Cardiac Cardiac: RRR, No murmur - Respiratory Respiratory: Clear bilaterally - Abdomen Abdomen: Normal bowel sounds, Soft, Non tender, Non distended - Derm Derm: Warm and dry - Extremities Extremities: No deformity - Neuro Neuro: Alert and oriented X 3 - Psych Psych: Normal mood, Normal affect - Free text exam Free text exam: Well-appearing husky male in no apparent distress on examination of his bilateral lower extremities he has multiple superficial and larger varicosities from her bulging especially around the right anterior lateral calf. He has a palpable superficial vein at the location where he is symptomatic. I was concerned given his history of venous disease and recent surgery and wanted to rule out any deep venous thrombosis in the deeper system and ultrasound was done and read by radiology just ultrasound demonstrates superficial phlebitis without any evidence of deep venous thrombosis. Disposition to home Clinical impression: 1. Superficial thrombophlebitis right lower extremity Results - Vitals Vitals: Vital Signs - 24 hr 11/15/16 08:38 Temperature 36.2 C L Heart Rate 88 Respiratory 18 Rate Blood Pressure 155/101 H O2 Saturation 98 Oxygen O2 Source Room air Departure - Departure Disposition: 01 Home, Self Care Clinical Impression: Superficial thrombophlebitis Clinical Impression: (Ruled Out): Deep vein thrombosis Condition: Good Instructions: ED Phlebitis Superficial Follow-Up: VICKI GILL MD [Primary Care Provider] - Prescriptions: HYDROcod/ACETAM 5/325 [[place] 5/325] 1 - 2 ea PO Q6H PRN #15 tablet PRN Reason: Pain
--- NOTE | 2016-11-15 11:02 | Ultrasound Report ---
RIGHT LEG VENOUS DUPLEX: 11/15/2016 CLINICAL INDICATION: Swelling status post surgery. TECHNIQUE: Real-time sonographic vascular imaging was performed by the new client banking services clerk through the right leg utilizing both color flow and Doppler spectral analysis. Multiple apparel trimmings sales representative static images w ere saved for review. FINDINGS: A right lower extremity venous sonogram is performed revealing the common femoral, superfi cial femoral, profunda femoris, and popliteal veins to be adequately visualized without intraluminal defects. There is normal venous compression, augmentation, phasicity, and spontaneity of venous flow. In the calf, the visualized more cephalad portions of posterior tibial and peroneal veins are gross ly compressible, without filling defects. There is superficial thrombophlebitis of the distal greate r saphenous vein in the calf. IMPRESSION: NO EVIDENCE OF DEEP VENOUS THROMBOSIS. JOB #: [id number] EXT JOB #:
== END 2016-11-15 11:04 | disposition home or self-care (01) ==
LOC: ED 08:32
DX: I80.01 Phlebitis and thrombophlebitis of superficial vessels of right lower extremity (principal); I83.91 Asymptomatic varicose veins of right lower extremity; I10 Essential (primary) hypertension; E78.00 Pure hypercholesterolemia, unspecified; G47.30 Sleep apnea, unspecified; K21.9 Gastro-esophageal reflux disease without esophagitis
CPT/HCPCS: 99283

== ENCOUNTER 2017-06-30 09:49 | Emergency (ER) | payer OTHER ==
[2017-06-30 10:10] VITALS: BP 142/92
[2017-06-30] MEDS ORDERED: BUPIVACAINE 0.5% PF 30 ML VIAL SUBQ STA (10:12)
[2017-06-30] MEDS ORDERED: TETANUS/DIPHTHERIA/PERTUSSIS 0.5 ML SYRINGE IM ONE (10:12)
--- NOTE | 2017-06-30 10:15 | ED Physician Documentation ---
History of Present Illness - Stated complaint Stated Complaint: HAND INJURY - Chief complaint Chief Complaint: Laceration - Additonal information Additional information: hx from pt 51 male slipped and struck R palm on metal corner suffering stallate lac to radial aspect of the paklm, no motor sensory deficits last tetanus< 5 yr ago Review of Systems Skin: reports: Laceration (s) PD PAST MEDICAL HISTORY - Past Medical History Cardiovascular: Hypertension, High cholesterol Respiratory: Sleep apnea Neuro: None Endocrine/Autoimmune: None GI: GERD : None HEENT: None Psych: None Musculoskeletal: None Derm: None - Past Surgical History Past Surgical History: Yes General: Appendectomy Ortho: Shoulder arthroplasty Cardiovascular: Vascular surgery HEENT: Tonsil/Adenoidectomy - Present Medications Home Medications: Ambulatory Orders Medication Instructions Recorded Confirmed Atenolol 25 mg PO DAILY 11/05/16 11/15/16 Losartan/Hydrochlorothiazide 1 tab PO DAILY 11/06/16 11/15/16 [Losartan-Hctz 100-25 mg Tab] Potassium Chloride 20 meq PO DAILY 11/06/16 11/15/16 Ciprofloxacin HCl [Cipro] 500 mg PO BID #20 tablet 11/07/16 11/15/16 Docusate Sodium 250Mg Capsule 250 mg PO DAILY PRN #30 capsule 11/07/16 11/15/16 [Colace 250Mg Capsule] oxyCODONE/ACET 5/325 [Percocet 5 1 each PO Q4-6H PRN #20 tablet 11/07/16 mg/325 mg] HYDROcod/ACETAM 5/325 [[place] 5/325] 1 - 2 ea PO Q6H PRN #15 tablet 11/15/16 Cephalexin [Keflex] 500 mg PO Q6H #28 capsule 06/30/17 - Allergies Allergies/Adverse Reactions: Allergies Allergy/AdvReac Type Severity Reaction Status Date / Time benazepril HCl * Allergy Respiratory Verified 06/30/17 10:09 [From Lotensin] - Social History Does the pt smoke?: No Smoking Status: Never smoker Does the pt drink ETOH?: Yes Does the pt have substance abuse?: No - Immunizations Immunizations are current?: Yes - POLST Patient has POLST: No PD ED PE NORMAL - Vitals Vital signs reviewed: Yes - Extremities Extremities: Other (R hand, steallate lac to radial aspecyy palm proximal to 2nd MCP vis to base no FB and ran thumb and fingers through full JM and do not see any tendon defect, extension felsion MCP PIP DIP as well as sensation intact ) Results - Vitals Vitals: Vital Signs - 24 hr 06/30/17 09:54 Temperature 36.9 C Heart Rate 65 Respiratory 18 Rate Blood Pressure 142/92 H O2 Saturation 97 Oxygen O2 Source Room air Procedures - Laceration (location) hand Length in cm: 3 Wound type: Stellate Neurovascular status: Sensory intact, Motor intact Tendon involvement: Tendon intact, Other (ran through ROM under direct light and no tendon defect seen) Anesthesia: Marcaine 0.5% Wound Preparation: Irrigated copiously NS, Other (2 pices of avulsed tissue removed from wound) Skin layer closure: Nylon, Interrupted, Size #-0 - enter number (5), Sutures - enter # (8) Other: Patient tolerated well, No complications, Neurovascular intact, Dressing applied, Tetanus UTD Complexity: Simple Departure - Departure Disposition: 01 Home, Self Care Clinical Impression: Laceration, Puncture wound Condition: Good Instructions: ED Laceration Hand Follow-Up: ALESIA POWERS MD [Primary Care Provider] - Prescriptions: Cephalexin [Keflex] 500 mg PO Q6H #28 capsule Comments: The metal was clean and the wound was carefully washed and all tissue was removed - so hopefully no infection will develop. But the wound was deep with some avulsed tissue fragments. So keep the wound clean and apply antibiotic ointment daily. If you notice any redness or swelling developing, start the keflex that i prescribed. If any worsening of infection occurs come back to the ER Otherwise sutures may be removed at 10 days
== END 2017-06-30 12:21 | disposition home or self-care (01) ==
LOC: ED 09:49
DX: S61.411A Laceration without foreign body of right hand, initial encounter (principal); S61.431A Puncture wound without foreign body of right hand, initial encounter; W01.118A Fall on same level from slipping, tripping and stumbling with subsequent striking against other sharp object, initial encounter; I10 Essential (primary) hypertension
CPT/HCPCS: 12001; 12002; 99283

== ENCOUNTER 2019-11-01 15:17 | Emergency (ER) | payer BC, OTHER ==
--- NOTE | 2019-11-01 15:43 | ED Physician Documentation ---
PD HPI ALTERED MENTAL STATUS - Stated complaint Stated Complaint: MHE - History obtained from History obtained from: Patient, Family - Additional information Additional information: 54-year-old gentleman finished a course of steroids about 4 weeks ago. Ever since then he has not been sleeping. He is been doing done things with money. Mildly confused. Mild hallucinations mostly visual. He was started on low-dose Lamictal, 25 mg a day which really has not been helpful. Now seems more confused during a chat with his psychiatrist today and she referred him here for potential admission. He was seen last night at [facility] and per his report labs and a CT of the head were done without pertinent positive findings. Review of Systems Ten Systems: 10 systems reviewed and negative Constitutional: reports: Reviewed and negative Nose: reports: Reviewed and negative Throat: reports: Reviewed and negative PD PAST MEDICAL HISTORY - Past Medical History Cardiovascular: Hypertension, High cholesterol Respiratory: Sleep apnea Endocrine/Autoimmune: None GI: GERD : None HEENT: None Psych: None Musculoskeletal: None Derm: None - Past Surgical History Past Surgical History: Yes General: Appendectomy Ortho: Shoulder arthroplasty Cardiovascular: Vascular surgery HEENT: Tonsil/Adenoidectomy - Present Medications Home Medications: Ambulatory Orders Medication Instructions Recorded Confirmed atenoloL [Atenolol] 25 mg PO DAILY 11/05/16 11/15/16 Losartan/Hydrochlorothiazide 1 tab PO DAILY 11/06/16 11/15/16 [Losartan-Hctz 100-25 mg Tab] Potassium Chloride 20 meq PO DAILY 11/06/16 11/15/16 Ciprofloxacin HCl [Cipro] 500 mg PO BID #20 tablet 11/07/16 11/15/16 Docusate Sodium 250Mg Capsule 250 mg PO DAILY PRN #30 capsule 11/07/16 11/15/16 [Colace 250Mg Capsule] oxyCODONE/ACET 5/325 [Percocet 5 1 each PO Q4-6H PRN #20 tablet 11/07/16 11/15/16 mg/325 mg] HYDROcod/ACETAM 5/325 [[place] 5/325] 1 - 2 ea PO Q6H PRN #15 tablet 11/15/16 Cephalexin [Keflex] 500 mg PO Q6H #28 capsule 06/30/17 - Allergies Allergies/Adverse Reactions: Allergies Allergy/AdvReac Type Severity Reaction Status Date / Time benazepril HCl * Allergy Respiratory Verified 06/30/17 10:09 [From Lotensin] - Social History Does the pt smoke?: No Smoking Status: Never smoker Does the pt drink ETOH?: Yes Does the pt have substance abuse?: No - Immunizations Immunizations are current?: Yes - POLST Patient has POLST: No PD ED PE NORMAL - Vitals Vital signs reviewed: Yes - General General: Alert and oriented X 3, Other (Modestly tachycardic. Otherwise in no distress) - HEENT HEENT: PERRL, EOMI - Neck Neck: Supple, no meningeal sign, No bony TTP - Cardiac Cardiac: RRR, No murmur - Respiratory Respiratory: No respiratory distress, Clear bilaterally - Abdomen Abdomen: Normal bowel sounds, Soft, Non tender - Back Back: No CVA TTP, No spinal TTP - Derm Derm: Normal color, Warm and dry - Extremities Extremities: No deformity, No tenderness to palpate, No edema, No calf tenderness / cord - Neuro Neuro: Alert and oriented X 3, Normal speech - Psych Psych: Other (Slightly manic) Results - Vitals Vitals: Vital Signs - 24 hr 11/01/19 11/01/19 11/01/19 15:51 16:00 20:52 Temperature 36.7 C 36.5 C Heart Rate 123 H 114 H 98 Respiratory 16 16 18 Rate Blood Pressure 135/99 H 136/90 H 138/71 H O2 Saturation 96 96 98 Oxygen O2 Source Room air - Labs Labs: Laboratory Tests 11/01/19 11/01/19 11/01/19 15:58 15:58 20:00 WBC 7.8 RBC 4.39 L Hgb 14.3 Hct 40.6 L MCV 92.5 MCH 32.6 H MCHC 35.2 RDW 13.4 Plt Count 183 MPV 9.2 Neut # (Auto) 4.3 Lymph # (Auto) 2.4 [place] # (Auto) 0.7 Eos # (Auto) 0.3 Baso # (Auto) 0.1 Absolute Nucleated RBC 0.00 Nucleated RBC % 0.0 Sodium 138 Potassium 3.0 L Chloride 99 L Carbon Dioxide 27 Anion Gap 12.0 BUN 16 Creatinine 1.0 Estimated GFR (MDRD) 78 L Glucose 126 H Calcium 9.1 Total Bilirubin 1.4 H AST 39 ALT 46 Alkaline Phosphatase 48 Total Protein 6.8 Albumin 4.1 Globulin 2.7 Albumin/Globulin Ratio 1.5 Lipase 26 Urine Color YELLOW Urine Clarity CLEAR Urine pH 5.5 Ur Specific [place] 1.025 Urine Protein NEGATIVE Urine Glucose (UA) NEGATIVE Urine Ketones TRACE Urine Occult Blood NEGATIVE Urine Nitrite NEGATIVE Urine Bilirubin NEGATIVE Urine Urobilinogen 0.2 (NORMAL) Ur Leukocyte Esterase NEGATIVE Ur Microscopic Review NOT INDICATED Urine Culture Comments NOT INDICATED Urine Opiates Screen NEGATIVE Ur Oxycodone Screen NEGATIVE Urine Methadone Screen NEGATIVE Ur Propoxyphene Screen NEGATIVE Ur Barbiturates Screen NEGATIVE Ur Tricyclics Screen NEGATIVE Ur Phencyclidine Scrn NEGATIVE Ur Amphetamine Screen NEGATIVE U Methamphetamines Scrn NEGATIVE U Benzodiazepines Scrn NEGATIVE Urine Cocaine Screen NEGATIVE U Cannabinoids Screen NEGATIVE Ethyl Alcohol < 5.0 PD MEDICAL DECISION MAKING - ED course ED course: 54-year-old gentleman presents with an acute manic break and still has severe symptoms despite being placed on Seroquel by his psychiatrist. Discussed options for treatment and the patient and opted for inpatient treatment and social work found a bed for him at [facility] and he was accepted. [place] were completed. He was stable for transport. Departure - Departure Disposition: 65 Psych Hosp/Unit DC/Xfer Clinical Impression: Manic behavior Condition: Stable
[2019-11-01 16:04] LABS: BASOPHILS # (AUTO) 0.1 10^3/uL (0.0-0.1); BASOPHILS % (AUTO) 1.4 %; EOSINOPHILS # (AUTO) 0.3 10^3/uL (0.0-0.7); EOSINOPHILS % (AUTO) 3.3 %; HGB - HEMOGLOBIN 14.3 g/dL (14.0-18.0); LYMPHOCYTES # (AUTO) 2.4 10^3/uL (1.5-3.5); MEAN CORPUSCULAR HEMOGLOBIN 32.6 pg (27.0-31.0); MEAN CORPUSCULAR HGB CONC 35.2 g/dL (32.0-36.0); MEAN CORPUSCULAR VOLUME 92.5 fL (80.0-94.0); MEAN PLATELET VOLUME 9.2 fL (7.4-11.4); MONOCYTES # (AUTO) 0.7 10^3/uL (0.0-1.0); MONOCYTES % (AUTO) 8.9 %; NEUTROPHILS # (AUTO) 4.3 10^3/uL (1.5-6.6); NEUTROPHILS % (AUTO) 55.1 %; PLT - PLATELET COUNT 183 10^3/uL (130-450); RED BLOOD COUNT 4.39 10^6/uL (4.70-6.10); RED CELL DISTRIBUTION WIDTH 13.4 % (12.0-15.0); WHITE BLOOD COUNT 7.8 x10^3/uL (4.8-10.8)
[2019-11-01 16:20] LABS: ALBUMIN 4.1 g/dL (3.2-5.5); ALBUMIN/GLOBULIN RATIO 1.5 (1.0-2.2); ALKALINE PHOSPHATASE 48 IU/L (42-121); ALT ALANINE AMINOTRANSFERASE 46 IU/L (10-60); AST ASPARTATE AMINOTRANSFERASE 39 IU/L (10-42); BILIRUBIN,TOTAL 1.4 mg/dL (0.2-1.0); BUN - BLOOD UREA NITROGEN 16 mg/dL (6-20); CALCIUM 9.1 mg/dL (8.5-10.3); CARBON DIOXIDE - CO2 27 mmol/L (21-32); CHLORIDE 99 mmol/L (101-111); GLUCOSE 126 mg/dL (70-100); LIPASE 26 U/L (22-51); SODIUM 138 mmol/L (135-145); TOTAL PROTEIN 6.8 g/dL (6.7-8.2)
[2019-11-01 20:06] LABS: MUDS CUTOFF CONCENTRATIONS CUTOFF CONC BELOW:
[2019-11-01 20:07] LABS: BILIRUBIN,URINE NEGATIVE (NEGATIVE); GLUCOSE, URINE (UA) NEGATIVE (NEGATIVE); KETONES,URINE (UA) TRACE mg/dL (NEGATIVE); LEUKOCYTE ESTERASE, URINE NEGATIVE (NEGATIVE); NITRITE,URINE NEGATIVE (NEGATIVE); OCCULT BLOOD,URINE NEGATIVE (NEGATIVE); PH,URINE 5.5 PH (5.0-7.5); PROTEIN,URINE NEGATIVE (NEGATIVE); UROBILINOGEN,URINE 0.2 (NORMAL) E.U./dL (NORMAL)
[2019-11-01 20:08] LABS: CLARITY,URINE CLEAR (CLEAR)
[2019-11-01 20:17] LABS: AMPHETAMINE SCREEN,URINE NEGATIVE (NEGATIVE); BENZODIAZEPINES SCREEN, URINE NEGATIVE (NEGATIVE); COCAINE SCREEN URINE NEGATIVE (NEGATIVE); METHADONE SCREEN, URINE NEGATIVE (NEGATIVE); METHAMPHETAMINES SCREEN, URINE NEGATIVE (NEGATIVE); OPIATE SCREEN, URINE NEGATIVE (NEGATIVE); OXYCODONE SCREEN, URINE NEGATIVE (NEGATIVE); PROPOXYPHENE SCREEN, URINE NEGATIVE (NEGATIVE); TRICYCLIC ANTIDEPRESSANT,URINE NEGATIVE (NEGATIVE)
[2019-11-01] MEDS ORDERED: haloperidoL 1 MG TABLET PO STA (21:46)
[2019-11-02 05:48] VITALS: BP 126/56
== END 2019-11-02 05:49 ==
LOC: ED 15:17
DX: F30.13 Manic episode, severe, without psychotic symptoms (principal); I10 Essential (primary) hypertension
CPT/HCPCS: 36415; 80053; 80306; 80320; 81003; 83690; 85025; 99284; 99285; A9270; 81001; 87086

== ENCOUNTER 2022-03-11 19:05 | Emergency (ER) | payer BC ==
--- NOTE | 2022-03-11 20:05 | ED Physician Documentation ---
History of Present Illness - Stated complaint Stated Complaint: R LEG PX - Chief complaint Chief Complaint: Ext Problem - Additonal information Additional information: 56-year-old male presents emergency department for evaluation of acute right medial lower leg pain. He reports that a varicose vein has become engorged hard and tender. Symptoms began just a few hours prior to arrival. He has no history of DVT. No recent immobilizations. He was COVID-positive 1 month ago. Does have a history of hypertension for which he appropriately takes medications. Denies any fever or recent surgeries or immobilization. Review of Systems Constitutional: denies: Fever, Chills Nose: reports: Reviewed and negative Cardiac: reports: Reviewed and negative Respiratory: reports: Reviewed and negative Musculoskeletal: reports: Extremity pain. denies: Extremity swelling Neurologic: reports: Reviewed and negative PD PAST MEDICAL HISTORY - Past Medical History Past Medical History: Yes Cardiovascular: Hypertension, High cholesterol Respiratory: Sleep apnea Endocrine/Autoimmune: None GI: GERD : None HEENT: None Psych: None Musculoskeletal: None Derm: None - Past Surgical History Past Surgical History: Yes General: Appendectomy Ortho: Shoulder arthroplasty Cardiovascular: Vascular surgery HEENT: Tonsil/Adenoidectomy - Present Medications Home Medications: Ambulatory Orders Medication Instructions Recorded Confirmed atenoloL [Atenolol] 25 mg PO DAILY 11/05/16 03/11/22 Losartan/Hydrochlorothiazide 1 tab PO DAILY 11/06/16 03/11/22 [Losartan-Hctz 100-25 mg Tab] Potassium Chloride 20 meq PO DAILY 11/06/16 03/11/22 - Allergies Allergies/Adverse Reactions: Allergies Allergy/AdvReac Type Severity Reaction Status Date / Time benazepril HCl * Allergy Respiratory Verified 03/11/22 19:35 [From Lotensin] prednisone Allergy Hallucinati Verified 03/11/22 19:35 ons - Social History Does the pt smoke?: No Smoking Status: Never smoker Does the pt drink ETOH?: Yes Does the pt have substance abuse?: No - Immunizations Immunizations are current?: Yes - POLST Patient has POLST: No PD ED PE NORMAL - General General: Alert and oriented X 3, No acute distress - Extremities Extremities: No deformity, No tenderness to palpate, Other (No swelling of the bilateral lower extremities. No tenderness elicited with palpation of the deep calf. Right lower medial calf with an engorged and tender hard varicose vein. Mild amount of surrounding erythema.) Results - Vitals Vitals: Vital Signs - 24 hr 03/11/22 03/11/22 19:27 20:53 Temperature 36.2 C L Heart Rate 67 63 Respiratory 18 16 Rate Blood Pressure 140/86 H 133/84 H O2 Saturation 98 99 Oxygen O2 Source Room air - Rads (name of study) US DVT Radiology: Other (per domestic technician: no DVT seen. superficial thrombophlebitis) PD MEDICAL DECISION MAKING - ED course Complexity details: reviewed results, considered differential, d/w patient ED course: 56-year-old male presents emergency department for evaluation of acute pain and tenderness at the site of an engorged varicose vein that began this evening. This is a very superficial vein and the exam is most consistent with a superficial thrombophlebitis. We did complete an ultrasound and no DVT was seen. 9 patient is discharged home in stable condition. I making the recommendation for warm compress ibuprofen and Tylenol. Clinically no findings at this time to suggest a surrounding cellulitis so antibiotics were deferred. Emergent return precautions were discussed for worsening symptoms. Departure - Departure Disposition: 01 Home, Self Care Clinical Impression: Superficial thrombophlebitis of right leg Condition: Stable Record reviewed to determine appropriate education?: Yes Instructions: ED Phlebitis Superficial Comments: Don was seen today in the emergency department because you have begun to have some pain on the right lower medial portion of your calf in an area where a varicose vein has become engorged. We did do an ultrasound and there are no deep vein thrombosis seen. You do have a condition called superficial thrombophlebitis. This just means a superficial vein has become inflamed and a small clot is there. These are not typically the types of clots that will put you at risk for pulmonary embolism. I would like you to place a warm compress over this leg for 10 minutes 2-3 times a day. Elevating the leg will also help. You can take Tylenol and ibuprofen for discomfort. In general most episodes of superficial thrombophlebitis will begin to resolve over about a week to 10 days. If you begin to develop significant swelling have severe pain any fevers or severe redness around this region then please return to the ER for a second evaluation.
[2022-03-11 22:01] VITALS: BP 134/81
--- NOTE | 2022-03-12 00:04 | Ultrasound Report ---
PROCEDURE: Duplex Ext Veins Right INDICATIONS: tender hard varicose vein TECHNIQUE: Real-time imaging, as well as color and pulse Doppler interrogation, were performed of the lower extr emity deep veins from the inguinal ligament to the popliteal fossa. COMPARISON: None. FINDINGS: The deep veins are normally compressible, and free of intraluminal thrombus where visualiz ed. The calf veins were not well seen and incompletely evaluated due to patient tenderness. Color an d pulse Doppler demonstrate normal phasic intraluminal flow. There is normal augmentation response t o distal compression maneuver. Within the medial calf region, there is a thrombosed superficial varicose vein. IMPRESSION: 1. No evidence of deep venous thrombosis in the right lower extremity where visualized, with the lowe r leg not well evaluated. 2. Superficial venous thrombosis within varicose veins in the medial calf region. Reviewed by: Jay Miles MD on 03/12/2022 12:02 AM PDT Approved by: Jay Miles MD on 03/12/2022 12:02 AM PDT Station ID: [id number]
== END 2022-03-11 22:02 | disposition home or self-care (01) ==
LOC: ED 19:05
DX: I80.01 Phlebitis and thrombophlebitis of superficial vessels of right lower extremity (principal); I10 Essential (primary) hypertension
CPT/HCPCS: 99282; 99284

== ENCOUNTER 2022-05-10 22:12 | Emergency (ER) | payer BC ==
--- NOTE | 2022-05-10 23:55 | ED Physician Documentation ---
History of Present Illness - Stated complaint Stated Complaint: L KNEE PX - Chief complaint Chief Complaint: Ext Problem - History obtained from History obtained from: Patient - History of Present Illness Timing: Today (this afternoon) Pain level max: 6 (with movement, weight-bearing) Pain level now: 1 (at rest) Improved by: rest Worsened by: movement, weight-bearing - Additonal information Additional information: HPI from patient. Patient says that his left knee "gave out" (per patient), "can't stand or bear weight" on the LLE. Patient was walking in town this afternoon and without particular incident except that he was walking and took a step and went to bear weight on his LLE when he had sudden severe left knee pain and sensation of left knee instability, causing him to fall to the ground. He says he has since been able to minimally weight-bear due to combination of pain with weight-bearing and sensation of instability of the knee. Denies h/o similar symptoms. Denies weakness, numbness. Denies other injury; denies head, neck injury. Review of Systems Musculoskeletal: reports: Joint pain, Pain with weight bearing. denies: Extremity swelling, Joint swelling Neurologic: denies: Focal weakness, Numbness PD PAST MEDICAL HISTORY - Past Medical History Past Medical History: Yes Cardiovascular: Hypertension, High cholesterol Respiratory: Sleep apnea Endocrine/Autoimmune: None GI: GERD : None HEENT: None Psych: None Musculoskeletal: Osteoarthritis Derm: None - Past Surgical History Past Surgical History: Yes General: Appendectomy Ortho: Shoulder arthroplasty, Other Cardiovascular: Vascular surgery HEENT: Tonsil/Adenoidectomy - Present Medications Home Medications: Ambulatory Orders Medication Instructions Recorded Confirmed atenoloL [Atenolol] 25 mg PO DAILY 11/05/16 05/10/22 Losartan/Hydrochlorothiazide 1 tab PO DAILY 11/06/16 05/10/22 [Losartan-Hctz 100-25 mg Tab] Potassium Chloride 20 meq PO DAILY 11/06/16 05/10/22 Tumeric/Ging/[place]/Oreg/Capryl 1,000 mg PO DAILY 05/10/22 05/10/22 [Candicidal Capsule] glucosamine HCL [Glucosamine HCl] 3,000 mg PO DAILY 05/10/22 05/10/22 - Allergies Allergies/Adverse Reactions: Allergies Allergy/AdvReac Type Severity Reaction Status Date / Time benazepril HCl * Allergy Respiratory Verified 05/10/22 22:17 [From Lotensin] prednisone Allergy Hallucinati Verified 05/10/22 22:17 ons - Social History Does the pt smoke?: No Smoking Status: Never smoker Does the pt drink ETOH?: Yes ETOH Use: Liquor Does the pt have substance abuse?: No - Immunizations Immunizations are current?: Yes - POLST Patient has POLST: No PD ED PE NORMAL - Vitals Vital signs reviewed: Yes - General General: Alert and oriented X 3, No acute distress (NAD at rest, appears to be in painful discomfort with movement involving left knee, particularly with weight-bearing), Well developed/nourished - Derm Derm: Normal color, Warm and dry - Extremities Extremities: No deformity, No tenderness to palpate, No edema - Neuro Neuro: No motor deficit, No sensory deficit PD ED PE EXPANDED - Extremities Extremities: Limited ROM (left knee is limited in extension due to exacerbation of pain), Pedal Pulses Present. No: Pedal edema R, Pedal edema L Results - Vitals Vitals: Oxygen O2 Source Room air PD Medical Decision Making - ED course Complexity details: considered differential, d/w patient ED course: sudden onset of left knee pain and sensation of instability when walking this afternoon, no injury per se. Nontender on exam of the left knee and surrounding structures (such as proximal fibula). HPI and exam are most c/w soft-tissue injury which could include sprain (including ACL, PCL, medial collateral ligament, lateral collateral ligament), meniscal tear/injury. Emergent study not indicated at this time; pain film xrays unlikely to reveal acute pathology/findings that would change short-term management of crutches to minimize weight-bearing and knee immobilizer to minimize movement. I recommended he seek follow up within one week with primary care provider; he might need study such as xrays, MRI if pain persists/worsens, might benefit from physical therapy, specialist (orthopedic) referral. He declines pain medication at this time. Departure - Departure Disposition: 01 Home, Self Care Clinical Impression: Sprain, knee Condition: Good Instructions: ED Meniscal Injury Knee Poss, ED Crutch Walking, ED Immobilizer Knee, ED Sprain Knee Comments: Based on the description of events that led to emergency department visit tonight, and considering lack of tenderness on the left knee exam tonight, no imaging tests are indicated at this time (such as x-rays, CT scan). However, as we discussed, you need to follow-up with an orthopedic surgeon within the next several days for reevaluation of the knee. It is possible that you will end up needing imaging studies such as CT or more likely MRI unless the symptoms improved significantly or resolve. In the meantime, use the crutches to minimize weightbearing and use the knee immobilizer to minimize movement. Discharge Date/Time: 05/11/22 00:35
[2022-05-11 00:44] VITALS: BP 130/68
== END 2022-05-11 00:35 | disposition home or self-care (01) ==
LOC: ED 22:12
DX: S83.92XA Sprain of unspecified site of left knee, initial encounter (principal); X58.XXXA Exposure to other specified factors, initial encounter; I10 Essential (primary) hypertension
CPT/HCPCS: 99282; 99283